=== PATIENT | female | born 1975 | race Two or more races ===

== ENCOUNTER 2022-10-16 10:14 | Emergency (ER) | payer OTHER ==
[~2022-10-16] VITALS: Ht 154.9 cm; Wt 96.0 kg
[2022-10-16 10:15] VITALS: BP 186/103
== END 2022-10-16 11:10 | disposition left against medical advice (07) ==
LOC: EDBD 10:14 → ER 10:14
DX: S60.912A Unspecified superficial injury of left wrist, initial encounter (principal); V89.2XXA Person injured in unspecified motor-vehicle accident, traffic, initial encounter; Y93.89 Activity, other specified; Y92.89 Other specified places as the place of occurrence of the external cause; Y99.8 Other external cause status